=== PATIENT | male | born 1965 | race Caucasian/White ===

== ENCOUNTER 2017-01-24 06:12 | Day surgery (SDC) | payer BC, OTHER ==
[~2017-01-24 06:12] MED LIST: ACETAMINOPHEN 325 MG TABLET PO PRN; DEXAMETHASONE SOD PHOSPHATE 10 MG/ML VIAL IV PRN; NORMAL SALINE 3 ML BOX IV PRN; ONDANSETRON HCL/PF 2 MG/ML VIAL IV PRN; OXYMETAZOLINE HCL 150 SPRAY BTL NS PRN; RINGERS SOLUTION,LACTATED 1,000 ML IV PRN; ceFAZolin SODIUM 1 GM in DEXTROSE 5 % IN WATER 100 ML IV PRN; oxyCODONE HCL/ACETAMINOPHEN 1 TAB TABLET PO PRN
[2017-01-24] MEDS ORDERED: OXYMETAZOLINE HCL 150 SPRAY BTL NS ONE (07:06)
[2017-01-24] MEDS ORDERED: COCAINE HCL 4 APPL BTL TP ONE (07:26)
[2017-01-24] MEDS ORDERED: MUPIROCIN 22 APPL TUBE TP ONE (07:27)
[2017-01-24] MEDS ORDERED: LIDOCAINE HCL/EPINEPHRINE 30 ML VIAL IJ ONE ×2 (07:27)
[2017-01-24] MEDS ORDERED: RINGERS SOLUTION,LACTATED 1,000 ML IV ONE (07:50)
[2017-01-24] MEDS ORDERED: MORPHINE SULFATE 2 MG/ML DISP.SYRIN IV PRN ×2 (08:49→08:50)
[2017-01-24] MEDS ORDERED: MORPHINE SULFATE 4 MG/ML SYRG IV PRN ×2 (08:51→08:52)
[2017-01-24 09:47] VITALS: BP 119/73
== END 2017-01-24 06:13 | disposition home or self-care (01) ==
LOC: AMB 06:12
PROVIDERS: ATTEND Allergy & Immunology
PROC: 09TL0ZZ Resection of Nasal Turbinate, Open Approach (ICD-10-PCS; 2017-01-24)
PROC: 09SM0ZZ Reposition Nasal Septum, Open Approach (ICD-10-PCS; principal; 2017-01-24 07:00)
DX: J34.2 Deviated nasal septum (principal); J34.3 Hypertrophy of nasal turbinates; I10 Essential (primary) hypertension; Z87.891 Personal history of nicotine dependence; Z68.28 Body mass index [BMI] 28.0-28.9, adult

== ENCOUNTER 2017-11-27 09:16 | Emergency (ER) | payer BC, OTHER ==
[2017-11-27] MEDS: LIDOCAINE HCL 20 ML UDC PO ONE (09:38)
[2017-11-27] MEDS: MAG HYDROX/ALUMINUM HYD/SIMETH 30 ML UDC PO ONE (09:38)
[2017-11-27 09:48] LABS: Hematocrit 44.1 % (42.0-52.0); Hemoglobin 15.5 gm/dL (13.5-18.0); Mean Cell Volume 85.8 fl (78-100); Mean Corpuscular Hemoglobin 30.2 pg (27-31); Mean Corpuscular Hgb Conc 35.1 g/dl (32-36); Mean Platelet Volume 9.7 fl (6.0-9.5); Neutrophil # 7.2 K/mm3 (1.3-6.0); Neutrophil % 78.9 % (42-75.0); Platelet Count 203 K/mm3 (150-450); Red Blood Count 5.14 M/mm3 (4.7-6.0); Red Cell Distribution Width 12.1 % (11.5-14.0); White Blood Count 9.2 K/mm3 (4.0-10.5)
[2017-11-27 09:57] LABS: Partial Thrombolplastin Time 24.5 Seconds (24-32)
[2017-11-27 10:01] LABS: Urine Bilirubin Negative (NEGATIVE); Urine Blood 50 /ul (NEGATIVE); Urine Ketone Negative (NEGATIVE); Urine Nitrite Negative (NEGATIVE); Urine Protein Negative (NEGATIVE); Urine Specific Gravity <=1.005 SP.GR. (1.005-1.030); Urine Urobilinogen Normal (NORMAL); Urine pH 6.5 pH (5.0-7.0)
[2017-11-27 10:05] LABS: Urine Appearance Clear; Urine Bacteria None Seen; Urine Color Pale Yellow; Urine RBC None Seen /hpf (0-5); Urine Squamous Epithelial Cell None Seen /hpf; Urine WBC 0-5 /hpf (0-5)
[2017-11-27 10:08] LABS: ALT 39 U/L (19-67); AST 19 U/L (0-48); Albumin * 3.8 gm/dl (3.4-5.0); Alkaline Phosphatase * 90 U/L (50-170); Amylase * 66 U/L (25-115); BUN/Creatinine Ratio 17.9 (9.0-21.6); Bilirubin, Total 0.5 mg/dL (0.0-1.1); Blood Urea Nitrogen 21 mg/dL (6-23); Ca. Corrected For Albumin 8.4 mg/dL (8.4-10.2); Calcium * 8.6 mg/dL (7.9-10.9); Carbon Dioxide 26.6 mmol/L (24-32.6); Chloride 104 mmol/L (97-106); Glucose * 96 mg/dL (70-110); Lipase 130 U/L (73-393); Potassium 4.6 mmol/L (3.4-4.6); Sodium 137 mmol/L (132-142); Total Protein 7.4 gm/dL (6.2-8.2)
[2017-11-27 10:10] LABS: Troponin I Less than 0.017 ng/ml (0.00-0.10)
[2017-11-27] MEDS: NITROGLYCERIN 0.4 MG/TAB BTL SL PRN (10:29)
[2017-11-27] MEDS ORDERED: NITROGLYCERIN 0.4 MG/TAB BTL SL ONE (10:29)
[2017-11-27] MEDS: NORMAL SALINE 1,000 ML IV ONE (10:30)
[2017-11-27] MEDS ORDERED: MORPHINE SULFATE 2 MG/ML DISP.SYRIN ONE (11:11)
[2017-11-27] MEDS: MORPHINE SULFATE 2 MG/ML DISP.SYRIN IV ONE (11:12)
[2017-11-27 13:22] VITALS: BP 124/71
--- NOTE | 2017-11-27 13:28 | ERNOTE ---
Chest Pain/Cardiac HPI Date of Service: 11/27/17 Chief Complaint: Chest Pain Time Seen by Provider: 11/27/17 09:31 Source: patient, family Allergies/Adverse Reactions: Allergies No Known Drug Allergies Allergy (Verified 11/27/17 09:26) Home Medications: HOME MEDICATIONS Irbesartan [Avapro] 150 mg PO DAILY 10/01/12 [Last Taken Unknown] Triamcinolone Acetonide [Nasacort Aq] 1 spray NS DAILY 10/01/12 [Last Taken Unknown] Fexofenadine HCl [Allison Allergy] 180 mg PO DAILY 02/07/16 [Last Taken Unknown] Omeprazole 20 mg PO DAILY 01/24/17 [Last Taken Unknown] Narrative: patient had chestpain- reflux last pm, reocurred today with pain radiating into neck Timing: constant, intermittent, unsure Severity/Quality: moderate, aching, indigestion Location: epigastric Chest Pain Radiation: neck Activities at Onset: none Modifying Factors - Improves: Present: nothing Modifying Factors - Worsens: Present: nothing Nitro Today/Relief: no nitro taken today Aspirin Treatment Today: no aspirin today Associated Symptoms: Present: nausea Prior Chest Pain/Cardiac Workup: Reports: no prior cardiac workup Review of Systems - Narrative Narrative: unremarkable - Review of Systems Constitutional: Present: See HPI EYE: Present: no symptoms reported ENT: Present: no symptoms reported Respiratory: Present: no symptoms reported, other Cardiology: Present: See HPI Gastrointestinal/Abdominal: Present: nausea, other - reflux symptoms Genitourinary: Present: no symptoms reported Musculoskeletal: Present: no symptoms reported Skin: Present: no symptoms reported Neurological: Present: no symptoms reported Endocrine: Present: no symptoms reported Hematologic/Lymphatic: Present: no symptoms reported - Narrative Narrative: gerd - Patient's Past Medical History Patient History - Medical: Other Patient History - Cardiac/Respiratory: Hypertension Patient History - Cancer: No Hx of Cancer Patient History - Surgical Procedures: Colonoscopy, Other Patient History - Other: None - Family History Family History:: no untoward family reactions to anesthesia, no familial bleeding tendencies, no family history of clotting disorders, no family history of premature - Family History Brother Family History - Medical: Diabetes Type 2 Family History - Cardiac/Respiratory: No pertinent hx Family History - Cancer: No pertinent family hx Father Family History - Medical: No pertinent hx Family History - Cardiac/Respiratory: Other Family History - Cancer: No pertinent family hx Mother Family History - Medical: No pertinent hx Family History - Cardiac/Respiratory: No pertinent hx Family History - Cancer: No pertinent family hx Sister Family History - Medical: Diabetes Type 2 Family History - Cardiac/Respiratory: No pertinent hx Family History - Cancer: No pertinent family hx - Social History Living Situations: home Abuse History: No History of abuse Psych History: No pertinent hx Smoking Status: Former smoker Have you smoked in the past 12 months: No Do you dip or chew tobacco: No Patient requests Smoking Cessation Consult: No Initiate information on Smoking Cessation: No Alcohol Use: none Drug Use: none - Immunizations Immunizations Up to Date: Yes Hx Pneumococcal Vaccination: Yes History of Influenza Vaccine: Yes Physical Exam - Physical Exam General Appearance: Present: mild distress Head Exam: Present: normal inspection, no evidence of injury Eye Exam: Normal inspection: bilateral, PERRL: bilateral, EOMI: bilateral Ears, Nose, Throat: Present: normal ENT inspection Neck: Present: normal inspection, nontender Respiratory: Present: no respiratory distress, normal breath sounds, no accessory muscle use, chest nontender, lungs clear Cardiovascular/Chest: Present: regular rate, rhythm, no murmur, normal peripheral pulses Peripheral Pulses: N=norm/S=strong/W=weak/B=bound/A=absent: Carotid (R): Normal , Carotid (L): Normal, Radial (R): Normal, Radial (L): Normal, Femoral (R): Normal, Femoral (L): Normal, Dorsalis-pedis (R): Normal, Dorsalis-pedis (L): Normal Gastrointestinal/Abdominal: Present: normal bowel sounds, nontender, nondistended, soft, no organomegaly Back Exam: Present: normal inspection, normal range of motion, no CVA tenderness , no vertebral tenderness Extremity Exam: Present: normal inspection, non-tender, normal range of motion, no edema Neurological Exam: Present: alert, oriented, normal mood/affect, no motor/ sensory deficits DTR: N=norm/NB=norm/brisk/A=abs/DD=dull/dimin/HC=hyperactive: Bicep (R): Normal , Bicep (L): Normal, Tricep (R): Normal, Tricep (L): Normal, Knee (R): Normal, Knee (L): Normal, Ankle (R): Normal, Ankle (L): Normal Skin Exam: Present: normal color, warm/dry Lymphatic Exam: Present: no adenopathy ED Progress - Date and Time Seen: Date and Time: 11/27/17 13:26 condition improved - Results and Orders Patient's Lab Results:: I have reviewed the patient's lab results. - Vital Signs Patient's Vital Signs:: I have reviewed the patient's vital signs. Vital Signs: Vital Signs 11/27/17 11/27/17 11/27/17 09:22 09:27 09:28 Temperature 36.6 C Pulse Rate 76 78 78 Respiratory 13 12 Rate Blood Pressure 148/93 O2 Sat by Pulse 98 99 Oximetry 11/27/17 11/27/17 11/27/17 10:27 11:15 12:30 Temperature Pulse Rate 76 70 66 Respiratory 12 12 15 Rate Blood Pressure 140/82 121/80 118/77 O2 Sat by Pulse 98 95 97 Oximetry - EKG EKG: NSR EKG read: Interp. by me - X-Ray X-Ray #1 X-Ray: chest Interpretation: Discd w/ radiologist - nad - Progress/Reassessment Chief Complaint: Chest Pain Progress:: Improved - Transfer of Care Expected Disposition: Discharge Plan - Plan Plan: to be discharged, to schedule outpatient treadmill Departure Clinical Impression: Chest pain in adult - Departure Disposition: Home self-care Condition: Good Instructions: Nonspecific Chest Pain, [id number]
== END 2017-11-27 13:46 | disposition home or self-care (01) ==
LOC: ER 09:16
DX: R07.9 Chest pain, unspecified (principal); I10 Essential (primary) hypertension; Z87.891 Personal history of nicotine dependence